=== PATIENT | female | born 1990 | race Caucasian/White ===

== ENCOUNTER 2018-08-11 02:57 | Outpatient (CLI) | payer BC ==
[2018-08-11 07:16] VITALS: BP 136/85; PULSE 106; RESP 16; TEMP 96.9
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
== END 2018-08-11 03:38 | disposition home or self-care (01) ==
LOC: FBPOP 02:57
PROVIDERS: ATTEND Obstetrics & Gynecology
DX: O26.893 Other specified pregnancy related conditions, third trimester (principal); Z3A.31 31 weeks gestation of pregnancy; V47.6XXA Car passenger injured in collision with fixed or stationary object in traffic accident, initial encounter
CPT/HCPCS: 59025; 99213